=== PATIENT | male | born 1960 | race Caucasian/White ===

== ENCOUNTER → 2016-12-11 | Outpatient (REF) ==
[~2016-12-11] MED LIST: ASPIRIN E.C. 8181 MG PO; BETA CAROTENE PO; CHROMIUM PO; CINNAMON500 MG PO; CLARITIN 1010 MG/TAB PO; FLAX OIL1000 MG PO; LUTEIN20 MG PO; LYCOPENE10 MG PO; MULTIPLE VITAMI1 CAP PO; NATURAL MAGNES200 MG PO; NIACIN500 MG PO; OMEGA-3 FISH1200 MG PO; PRINZIDE 25 MG-1 TAB PO; PSEUDOEPHEDRINE30 M1 PO; SUPER B COMPLEX1 TA2 PO; VITAMIN D31000 I1 PO; VITAMIN E 400 U4001 PO; ZINC GLUCONATE PO; [UNRECOGNIZED DRUG - OTHER] PO
== END ==
LOC: ZLAB.WCH 10:16
DX: Z01.89 Encounter for other specified special examinations (principal)

== ENCOUNTER 2017-06-21 09:19 | Inpatient (IN) | payer OTHER ==
[~2017-06-21] VITALS: Ht 185.4 cm; Wt 148.9 kg
[2017-07-29] VITALS (9 sets, daily range): BP systolic 106–151; BP diastolic 51–82; PULSE 56–81; TEMP 97.8–97.9
[2017-07-29] MEDS ORDERED: MASON NATURAL G1 CAP PO (01:22)
[2017-07-29] MEDS ORDERED: CLARITIN 1010 MG/TAB PO (01:22)
[2017-07-29] MEDS ORDERED: EPA FISH OIL1 SGL PO (01:23)
[2017-07-29] MEDS ORDERED: FOLIC ACID0.4 MG PO (01:24)
[2017-07-29] MEDS ORDERED: LUTEIN20 M1 PO (01:24)
[2017-07-29] MEDS ORDERED: IRON18 MG1 PO (01:25)
[2017-07-29] MEDS ORDERED: NIACIN 64 MG-501 TA1 PO (01:25)
[2017-07-29] MEDS ORDERED: MULTIPLE VITAMI1 CAP PO (01:25)
[2017-07-29] MEDS ORDERED: PROFERRIN ES12 MG PO (01:26)
[2017-07-29] MEDS ORDERED: VTAMINC250TA PO (01:30)
[2017-07-29] MEDS ORDERED: ZESTORETIC 25 M1 TAB PO (01:31)
[2017-07-29] MEDS ORDERED: FLONASE NASAL S16 GM NS (01:31)
[2017-07-29] MEDS ORDERED: SUDAFED30 MG PO (01:31)
[2017-07-29] MEDS ORDERED: ULTRAM 50MG TAB50 MG PO (01:32)
[2017-07-29] MEDS ORDERED: CINNAMON500 MG PO (06:07)
[2017-07-29] MEDS ORDERED: SUDAFED 12 HOU120 MG PO (06:10)
[2017-07-29] MEDS ORDERED: FOLIC ACID 40400 MCG PO (06:17)
[2017-07-29] MEDS ORDERED: FERROUS SU325 MG/TAB PO (06:17)
[2017-07-29] MEDS ORDERED: TYLENOL 500MG500 MG PO (06:18)
[2017-07-29] MEDS ORDERED: MOBIC15 MG PO (06:19)
[2017-07-29] MEDS ORDERED: FLAXSEED OIL PO (06:20)
[2017-07-30 00:59] VITALS: BP 109/66; PULSE 104; TEMP 99.9
[2017-07-30 04:00] VITALS: BP 132/66; PULSE 81; TEMP 99.1
[2017-07-30 05:53] LABS: HEMATOCRIT 40.8 % (42.0-52.0); HEMOGLOBIN 13.4 g/dl (13.5-18.0)
[2017-07-30 08:27] VITALS: BP 175/76; PULSE 101; TEMP 98.2
[2017-07-30 10:53] VITALS: BP 126/66; PULSE 103; TEMP 97.5
[2017-07-30 15:47] VITALS: BP 151/60; PULSE 92; TEMP 98.5
[2017-07-30 19:50] VITALS: BP 132/67; PULSE 108; TEMP 99.2
[2017-07-31 00:31] VITALS: BP 112/65; PULSE 86; TEMP 98.8
[2017-07-31 04:35] VITALS: BP 123/65; PULSE 91; TEMP 98.9
[2017-07-31 06:10] LABS: HEMOGLOBIN 12.2 g/dl (13.5-18.0)
[2017-07-31 06:13] LABS: HEMATOCRIT 36.8 % (42.0-52.0)
[2017-07-31 07:42] VITALS: BP 132/83; PULSE 94; TEMP 97.9
[2017-07-31] MEDS ORDERED: ASPI325T6 PO (07:42)
[2017-07-31] MEDS ORDERED: ROXICODONE 55 MG/TAB PO (07:42)
[2017-07-31 11:08] VITALS: BP 134/83; PULSE 99; TEMP 99.2
== END 2017-07-31 15:00 | disposition home or self-care (01) | DRG 470 ==
LOC: JCC 07-23 07:30
PROVIDERS: Orthopaedic Surgery Sports Medicine
PROC: 0SRB0JA Replacement of Left Hip Joint with Synthetic Substitute, Uncemented, Open Approach (ICD-10-PCS; principal; 2017-07-29 07:30)
DX: M16.12 Unilateral primary osteoarthritis, left hip (principal); G47.33 Obstructive sleep apnea (adult) (pediatric); I10 Essential (primary) hypertension
CPT/HCPCS: A9284; C1713; C1776; J0690; J2250; J2274; J2704; J2765; J3010

== ENCOUNTER → 2017-07-22 | Outpatient (CLI) | payer OTHER ==
[~2017-07-22] MED LIST changes: +ASPI325T6 PO; +EPA FISH OIL1 SGL PO; +FERROUS SU325 MG/TAB PO; +FLAXSEED OIL PO; +FLONASE NASAL S16 GM NS; +FOLIC ACID 40400 MCG PO; +FOLIC ACID0.4 MG PO; +IRON18 MG1 PO; +LUTEIN20 M1 PO; +MASON NATURAL G1 CAP PO; +MOBIC15 MG PO; +NIACIN 64 MG-501 TA1 PO; +PROFERRIN ES12 MG PO; +ROXICODONE 55 MG/TAB PO; +SUDAFED 12 HOU120 MG PO; +SUDAFED30 MG PO; +TYLENOL 500MG500 MG PO; +ULTRAM 50MG TAB50 MG PO; +VTAMINC250TA PO; +ZESTORETIC 25 M1 TAB PO
== END ==
LOC: COL.LAB 13:39
DX: Z01.812 Encounter for preprocedural laboratory examination (principal)

== ENCOUNTER → 2018-06-26 | Outpatient (REF) ==
[2018-06-26 17:13] LABS: THYROID STIMULATING HORMONE 0.762 uIU/mL (0.465-4.680)
[2018-06-26 17:37] LABS: PSA-TOTAL 1.47 ng/mL (0-4)
== END ==
LOC: ZLAB.WCH 16:17
PROVIDERS: Internal Medicine
DX: Z01.89 Encounter for other specified special examinations (principal)
CPT/HCPCS: G0103